=== PATIENT | male | born 1985 | race Caucasian/White ===

== ENCOUNTER 2021-08-17 12:13 | Emergency (ER) | payer MEDICAID ==
[~2021-08-17] VITALS: Ht 167.6 cm; Wt 70.8 kg
--- NOTE | 2021-08-17 12:48 | NUR ---
Urine cup provided for urine specimen collection. Patient said that he can not pee@this time
[2021-08-17 12:59] LABS: HEMATOCRIT 46.5 % (36.7-47.1); MEAN CORPUSCULAR HEMOGLOBIN 31.2 uug (23.8-33.4); MEAN CORPUSCULAR VOLUME 89.3 fL (73.0-96.2); PLATELET COUNT (AUTO) 346 K/uL (152-348)
[2021-08-17 13:08] LABS: CREATININE 0.9 mg/dL (0.6-1.3); POTASSIUM 3.9 mmol/L (3.5-5.1)
[2021-08-17 13:14] LABS: BILIRUBIN,DIRECT 0.1 mg/dL (0.0-0.2); BILIRUBIN,TOTAL 0.3 mg/dL (0.2-1.0); TOTAL PROTEIN, SERUM 8.1 g/dL (6.4-8.2)
--- NOTE | 2021-08-17 13:14 | NUR ---
[email or web address], medical screening exam in progress
[2021-08-17] MEDS ORDERED: KETOROLAC TROMETHAMINE 30 MG INJ IVP ONE (13:30)
[2021-08-17] MEDS ORDERED: IV NS 1000 ML 1,000 ML IV ONE (13:30)
[2021-08-17] MEDS ORDERED: IOHEXOL 300MG/ML 100 ML INFUS..BTL ONE (13:31)
[2021-08-17] MEDS ORDERED: KETOROLAC TROMETHAMINE 30 MG INJ ONE (13:40)
--- NOTE | 2021-08-17 13:48 | NUR ---
Patient is back from CT scan, pending results & disposition. PATIENT IS PAIN FREE AT THIS TIME.
--- NOTE | 2021-08-17 14:11 | NUR ---
For discharge, pending written discharge papers from Dr Silva
[2021-08-17 14:47] LABS: *BILIRUBIN,URIN NEGATIVE (NEGATIVE); *CLARITY,URINE CLEAR (CLEAR); *COLOR,URINE YELLOW (YELLOW); *KETONES,URINE NEGATIVE (NEGATIVE); *UROBILINOGEN,URINE 0.2 E.U./dl (NORMAL); LEUKOCYTE ESTERASE ,URINE NEGATIVE (NEGATIVE); NITRITE, URINE NEGATIVE (NEGATIVE); UGLUCOSE NEGATIVE (NEGATIVE)
[2021-08-17 14:54] LABS: *BLOOD, URINE NEGATIVE (NEGATIVE)
[2021-08-17] MEDS ORDERED: DICY20TA11 PO (15:52)
[2021-08-17] MEDS ORDERED: LOPE2CAP40 PO (15:52)
--- NOTE | 2021-08-17 16:01 | NUR ---
IV removed. Catheter intact and site benign. Pressure and 4x4 gauze applied to site. No bleeding noted. Patient discharged to home in stable condition with brisk steady gait. Written and verbal after care instructions given to patient. Patient verbalized understanding and compliance of instructions. Stressed follow up primary doctor and GI doctor or return to ER for worsening s/s.
== END 2021-08-17 16:01 | disposition home or self-care (01) ==
LOC: ER 12:13
DX: R10.9 Unspecified abdominal pain (principal); R19.7 Diarrhea, unspecified
CPT/HCPCS: 36415; 74177; 80048; 80076; 81003; 83690; 85025; 96361; 96374; 99285; J1885; Q9967; A4663